=== PATIENT | male | born 1950 | race Hispanic/Latino ===

== ENCOUNTER 2018-01-19 17:52 | Emergency (ER) | payer MEDICARE, MEDICAID ==
[~2018-01-19 17:52] MED LIST: ISOVUE-370 76%-LOCM 1 ML ONE
[2018-01-19] MEDS ORDERED: Lidocaine 1% (PF) 30 ML VIAL ONE (17:56)
[2018-01-19] MEDS ORDERED: Lidocaine 1% w/Epinephrine 1:100K 20 ML VIAL ONE (17:56)
[2018-01-19] MEDS ORDERED: Adacel (T-DAP) 0.5 ML VIAL ONE (18:07)
[2018-01-19] MEDS ORDERED: Clindamycin/D5W 600 mg/50 ml Premix Bag ONE (18:07)
[2018-01-19 18:18] LABS: #Eosinphils 0.3 thou/uL (0.0-0.7); #Lymphocytes 1.8 thou/uL (1.20-3.40); #Monocytes 0.5 thou/uL (0.11-0.59); #Neutrophils 4.2 thou/uL (1.40-6.50); %Basophils 0.6 % (0.0-1.0); %Eosinophils 5.1 % (0.0-10.0); %Lymphocytes 26.8 % (21.0-51.0); %Monocytes 7.1 % (0.0-10.0); %Neutrophils 60.5 % (42.0-75.0); Hemoglobin 11.4 g/dL (14.0-18.0); Mean Corpuscular HGB CONC 32.8 g/dL (32.0-36.0); Mean Corpuscular Hemoglobin 28.4 pg (27.0-31.0); Mean Corpuscular Volume 86.6 fl (80.0-94.0); Mean Platelet Volume 8.6 fL (7.4-10.4); Platelet Count 247 thou/uL (130-400); RBC Distribution Width 13.9 % (11.5-14.5); Red Blood Cell (RBC) Count 4.03 mill/uL (4.70-6.10); White Blood Cell (WBC) Count 6.9 thou/uL (4.8-10.8)
[2018-01-19] MEDS ORDERED: Acetaminophen 500 MG TAB ONE (18:29)
[2018-01-19 18:39] LABS: ALT (SGPT) 9 U/L (8-55); AST (SGOT) 15 U/L (5-34); Albumin 3.6 g/dL (3.4-4.8); Alkaline Phosphatase 133 U/L (40-150); Anion Gap 17 mmol/L (10-20); BUN (Urea Nitrogen) 33 mg/dL (8.4-25.7); Bilirubin, Total 0.3 mg/dL (0.2-1.2); Calc. Creatinine Clearance 0 mL/min (70-130); Calcium 8.5 mg/dL (7.8-10.44); Carbon Dioxide 25 mmol/L (23-31); Chloride 97 mmol/L (98-107); Estimated GFR-MDRD 11; Globulin 3.2 g/dL (2.4-3.5); Glucose 454 mg/dL (80-115); Protein, Total 6.8 g/dL (5.8-8.1); Sodium 135 mmol/L (136-145)
[2018-01-19 18:44] LABS: INR-International Normal Ratio 1.2; PTT 35.4 SEC (22.9-36.1); Prothrombin Time 15.4 SEC (12.0-14.7)
[2018-01-19] MEDS ORDERED: Bacitracin Zinc 1 Packet ONE (19:43)
[2018-01-19] MEDS ORDERED: traMADol HCl 50 MG TAB ONE (19:43)
--- NOTE | 2018-01-19 19:48 | CT ---
CT ANGIOGRAM LEFT UPPER EXTREMITY: Date: 01/19/18 HISTORY: Dog bite to right wrist 40 minutes prior to arrival. Patient reports right arm and hand pain. TECHNIQUE: Contiguous axial CT images are obtained through the right distal upper extremity from the level of th e distal forearm to the hand after the administration of intravenous contrast. 3D reconstruction imag es are provided. FINDINGS: There is subcutaneous soft tissue swelling with subcutaneous emphysema seen at the lateral aspect of the distal forearm at the level of the wrist suggesting laceration with associated subcutaneous edema . There is no extravasation of contrast to suggest active bleeding. The imaged portion of the distal brachial artery is patent. There are atherosclerotic vascular calcif ications and tortuosity of the ulnar artery, but the ulnar artery does appear patent to the level of the wrist. The most proximal radial artery is patent, but there is occlusion of the right radial yennifer ry at the level of the mid forearm. There are dense atherosclerotic vascular calcifications also seen in this region and distally within the right radial artery. The digital arteries do appear to demons trate flow as well. At least a portion of the palmar arch does appear patent. The vessels within the hand are small in caliber. There is no evidence of a fracture involving the forearm or wrist. IMPRESSION: 1. Evidence of laceration with subcutaneous edema involving the lateral aspect of the distal left fo rearm and wrist adjacent to the right radial artery. Right radial artery occludes at the level of the mid forearm. 2. The left ulnar artery is tortuous, but patent, and there is flow demonstrated in the digital yennifer anderson. The vessels in the hand are small in caliber, but the deep and superficial palmar arches appear patent. 3. No fracture seen. Findings discussed with Dr. Ngo in the emergency department on 01/19/18 at 1929 hours. CODE CR. POS: [facility]
[2018-01-19] MEDS ORDERED: Lidocaine Viscous Sol 2% 15 ml UD Cup ONE (21:35)
[2018-01-19] MEDS ORDERED: Mag-Al 1200 mg/1200 mg/30 ML UDCUP ONE (21:35)
--- NOTE | 2018-01-19 22:36 | CT ---
NONCONTRAST CT ABDOMEN AND PELVIS: Date: 01/19/18 HISTORY: Abdominal pain in epigastric region radiating to back. COMPARISON: 04/05/17. FINDINGS: Calcified granuloma is again seen at the left lung base. Lung bases are otherwise clear. Vascular calcifications are seen in the coronary arteries, as well as involving the abdominal aorta a nd iliac arteries. Vascular stent is present in the right common iliac artery extending into the righ t external iliac artery. Peritoneal dialysis catheter is seen entering via the right lower quadrant and terminating in the lef t aspect of the pelvis. There is minimal residual contrast in the renal collecting systems and contrast also seen in the urin tri bladder related to contrasted study performed earlier today. The liver, spleen, pancreas, bilateral adrenal glands, and kidneys demonstrate a grossly normal nonen hanced CT appearance. The appendix is visualized and normal in caliber. The raymundo of the urinary bladder do appear mildly thickened, but this may be related to incomplete di stention. Degenerative changes are seen in the spine with bilateral pars defects at L5 and slight Grade I anter olisthesis of L5 on S1. The area of skin thickening and inflammatory changes in the left anterolateral abdominal wall have im proved. There are degenerative changes seen in the lumbar spine with suggestion of fatty phylum terminale. IMPRESSION: 1. No acute findings are seen on this nonenhanced CT scan examination. There is no hydronephrosis or hydroureter. A ureteral calculus would be difficult to entirely exclude due to contrast in the renal collecting systems from prior contrasted exam. 2. Small to moderate amount of retained fecal material seen in the colon. 3. No CT evidence of appendicitis. 4. Spondylolisthesis lumbosacral junction. POS: [facility]
== END 2018-01-20 00:39 | disposition home or self-care (01) ==
LOC: ERS 17:52
DX: S61.551A Open bite of right wrist, initial encounter (principal); S51.851A Open bite of right forearm, initial encounter; S61.051A Open bite of right thumb without damage to nail, initial encounter; S61.052A Open bite of left thumb without damage to nail, initial encounter; E11.9 Type 2 diabetes mellitus without complications; I10 Essential (primary) hypertension; Z79.4 Long term (current) use of insulin; W54.0XXA Bitten by dog, initial encounter
CPT/HCPCS: 12002; 74176; 80053; 85025; 85610; 85730; 86850; 86900; 86901; 90471; 90715; 96365; J2001; J3490

== ENCOUNTER 2018-02-03 10:06 | Emergency (ER) | payer MEDICARE, MEDICAID ==
[2018-02-03] MEDS ORDERED: Bacitracin Zinc 1 Packet ONE (11:02)
== END 2018-02-03 11:04 | disposition home or self-care (01) ==
LOC: ERS 10:06
DX: S61.012D Laceration without foreign body of left thumb without damage to nail, subsequent encounter (principal); S61.011D Laceration without foreign body of right thumb without damage to nail, subsequent encounter; E11.9 Type 2 diabetes mellitus without complications; I10 Essential (primary) hypertension; Z79.4 Long term (current) use of insulin

== ENCOUNTER 2018-02-20 15:38 | Outpatient (CLI) | payer MEDICARE, MEDICAID | END 2018-02-20 15:39 | disposition home or self-care (01) | LOC: BICRAD 15:38 | PROVIDERS: ATTEND Internal Medicine Nephrology | DX: R07.81 Pleurodynia (principal); J90 Pleural effusion, not elsewhere classified | CPT/HCPCS: 71046 ==

== ENCOUNTER 2018-03-25 16:54 | Emergency (ER) | payer MEDICARE, MEDICAID ==
[2018-03-25 18:06] LABS: #Basophils 0.1 thou/uL (0.0-0.2); #Eosinphils 0.3 thou/uL (0.0-0.7); #Lymphocytes 1.9 thou/uL (1.20-3.40); #Monocytes 0.7 thou/uL (0.11-0.59); #Neutrophils 3.9 thou/uL (1.40-6.50); %Basophils 1.4 % (0.0-1.0); %Eosinophils 4.7 % (0.0-10.0); %Lymphocytes 27.1 % (21.0-51.0); %Monocytes 10.2 % (0.0-10.0); %Neutrophils 56.6 % (42.0-75.0); Hemoglobin 14.4 g/dL (14.0-18.0); Mean Corpuscular HGB CONC 32.5 g/dL (32.0-36.0); Mean Corpuscular Hemoglobin 26.9 pg (27.0-31.0); Mean Corpuscular Volume 82.8 fl (80.0-94.0); Mean Platelet Volume 9.8 fL (7.4-10.4); Platelet Count 135 thou/uL (130-400); RBC Distribution Width 14.6 % (11.5-14.5); Red Blood Cell (RBC) Count 5.34 mill/uL (4.70-6.10); White Blood Cell (WBC) Count 6.9 thou/uL (4.8-10.8)
[2018-03-25 18:28] LABS: ALT (SGPT) 10 U/L (8-55); AST (SGOT) 16 U/L (5-34); Albumin 3.7 g/dL (3.4-4.8); Alkaline Phosphatase 129 U/L (40-150); Anion Gap 9 mmol/L (10-20); BUN (Urea Nitrogen) 26 mg/dL (8.4-25.7); Bilirubin, Total 0.3 mg/dL (0.2-1.2); Calc. Creatinine Clearance 0 mL/min (70-130); Calcium 8.5 mg/dL (7.8-10.44); Carbon Dioxide 31 mmol/L (23-31); Chloride 101 mmol/L (98-107); Estimated GFR-MDRD 14; Glucose 93 mg/dL (80-115); Lipase 40 U/L (8-78); Potassium 3.2 mmol/L (3.5-5.1); Protein, Total 6.7 g/dL (5.8-8.1); Sodium 138 mmol/L (136-145)
--- NOTE | 2018-03-25 20:10 | CT ---
CT OF THE ABDOMEN AND PELVIS WITHOUT CONTRAST 03/25/18 COMPARISON: 01/19/18 HISTORY: Abdominal pain. The patient has a hemodialysis catheter in the abdomen. TECHNIQUE: Multiple contiguous axial images were obtained in a CT of the abdomen and pelvis without contrast. Co jadiel reformats were performed. FINDINGS: The kidneys are small and atrophic. The liver, gallbladder, adrenal glands, spleen, and pancreas are unremarkable, although evaluation is limited without IV contrast. The patient has a peritoneal dialysis catheter with its tip in the left abdomen. No free air, free fl uid, or stranding changes are seen in the abdomen or pelvis. The visualized large and small bowel are unremarkable. The appendix is normal. No abdominal or pelvic lymphadenopathy are seen. Degenerative changes are seen in the spine. The visu alized inferior thorax is unremarkable. IMPRESSION: No evidence of acute intra-abdominal/pelvic abnormality. POS: [facility]
== END 2018-03-25 18:32 | disposition home or self-care (01) ==
LOC: ERS 16:54
DX: R10.9 Unspecified abdominal pain (principal); I12.0 Hypertensive chronic kidney disease with stage 5 chronic kidney disease or end stage renal disease; E11.22 Type 2 diabetes mellitus with diabetic chronic kidney disease; N18.6 End stage renal disease; Z99.2 Dependence on renal dialysis; Z79.4 Long term (current) use of insulin; W01.0XXA Fall on same level from slipping, tripping and stumbling without subsequent striking against object, initial encounter
CPT/HCPCS: 36415; 74176; 80053; 83690; 85025; 93005

== ENCOUNTER 2018-05-23 09:05 | Outpatient (CLI) | payer MEDICARE, MEDICAID ==
--- NOTE | 2018-05-23 11:23 | CT ---
PRE AND POST CONTRAST HEAD CT: HISTORY: Chronic dizziness. The patient is a dialysis patient. COMPARISON: None. TECHNIQUE: Pre and post contrast head CT is performed. FINDINGS: No parenchymal hemorrhage. No extraaxial hematoma. No midline shift. The basilar cisterns are pat ent. Age appropriate atrophy. Cortical carr white matter differentiation is preserved. Ventricles and sulci are patent and symmetric. Note is made of a cavum septum pellucidum and cavum vergae. The calvarium is intact. Adequate aeration of the sinuses and mastoid air cells. Cavernous carotid atherosclerosis is noted. Post contrast images do not demonstrate any abnormal enhancement/pathologic enhancement of the brain parenchyma. IMPRESSION: Unremarkable pre and post contrast brain CT. POS: [facility]
== END 2018-05-23 09:06 | disposition home or self-care (01) ==
LOC: CT 09:05
PROVIDERS: ATTEND Internal Medicine Nephrology
DX: R42 Dizziness and giddiness (principal)
CPT/HCPCS: 70470

== ENCOUNTER 2019-01-29 20:35 | Emergency (ER) | payer MEDICARE, MEDICAID ==
[2019-01-29 21:02] LABS: #Basophils 0.1 thou/uL (0.0-0.2); #Eosinphils 0.4 thou/uL (0.0-0.7); #Lymphocytes 1.3 thou/uL (1.20-3.40); #Neutrophils 7.6 thou/uL (1.40-6.50); %Basophils 0.6 % (0.0-1.0); %Eosinophils 3.4 % (0.0-10.0); %Monocytes 9.5 % (0.0-10.0); %Neutrophils 73.4 % (42.0-75.0); Hemoglobin 13.1 g/dL (14.0-18.0); Mean Corpuscular HGB CONC 33.2 g/dL (32.0-36.0); Mean Corpuscular Hemoglobin 31.7 pg (27.0-31.0); Mean Corpuscular Volume 95.7 fL (78.0-98.0); Mean Platelet Volume 9.2 fL (7.4-10.4); Platelet Count 163 thou/uL (130-400); RBC Distribution Width 11.9 % (11.5-14.5); Red Blood Cell (RBC) Count 4.12 mill/uL (4.70-6.10); White Blood Cell (WBC) Count 10.3 thou/uL (4.8-10.8)
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
[2019-01-29 21:21] LABS: ALT (SGPT) 12 U/L (8-55); AST (SGOT) 17 U/L (5-34); Albumin 4.1 g/dL (3.4-4.8); Alkaline Phosphatase 152 U/L (40-150); Anion Gap 16 mmol/L (10-20); BUN (Urea Nitrogen) 26 mg/dL (8.4-25.7); Bilirubin, Total 0.4 mg/dL (0.2-1.2); Calc. Creatinine Clearance 0 mL/min (70-130); Calcium 8.9 mg/dL (7.8-10.44); Carbon Dioxide 27 mmol/L (23-31); Chloride 97 mmol/L (98-107); Estimated GFR-MDRD 9; Globulin 3.2 g/dL (2.4-3.5); Glucose 287 mg/dL (80-115); Potassium 4.4 mmol/L (3.5-5.1); Protein, Total 7.3 g/dL (5.8-8.1); Sodium 136 mmol/L (136-145)
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
[2019-01-29] MEDS ORDERED: Acetaminophen 500 MG TAB ONE (22:13)
== END 2019-01-29 22:12 | disposition home or self-care (01) ==
LOC: ERS 20:35
DX: S63.502A Unspecified sprain of left wrist, initial encounter (principal); S63.501A Unspecified sprain of right wrist, initial encounter; E11.9 Type 2 diabetes mellitus without complications; I10 Essential (primary) hypertension; Z79.4 Long term (current) use of insulin; V89.2XXA Person injured in unspecified motor-vehicle accident, traffic, initial encounter
CPT/HCPCS: 70450; 71260; 72125; 74177; 80053; 85025; G0390; Q9966

== ENCOUNTER 2019-08-06 12:48 | Inpatient (IN) | payer MEDICARE, MEDICAID ==
[2019-08-06] MEDS ORDERED: Nitroglycerin 2% Ointment 1 INCH/1 GM Packet ONE (13:27)
[2019-08-06 13:47] LABS: #Eosinphils 0.2 thou/uL (0.0-0.7); #Lymphocytes 1.1 thou/uL (1.20-3.40); #Monocytes 0.7 thou/uL (0.11-0.59); #Neutrophils 7.1 thou/uL (1.40-6.50); %Basophils 0.4 % (0.0-1.0); %Eosinophils 1.7 % (0.0-10.0); %Lymphocytes 11.7 % (21.0-51.0); %Monocytes 7.6 % (0.0-10.0); %Neutrophils 78.6 % (42.0-75.0); Hemoglobin 11.4 g/dL (14.0-18.0); Mean Corpuscular HGB CONC 34.8 g/dL (32.0-36.0); Mean Corpuscular Hemoglobin 32.6 pg (27.0-31.0); Mean Corpuscular Volume 93.7 fL (78.0-98.0); Mean Platelet Volume 9.6 fL (7.4-10.4); Platelet Count 183 thou/uL (130-400); RBC Distribution Width 11.4 % (11.5-14.5); Red Blood Cell (RBC) Count 3.49 mill/uL (4.70-6.10); White Blood Cell (WBC) Count 9.1 thou/uL (4.8-10.8)
--- NOTE | 2019-08-06 13:48 | RAD ---
EXAM: Chest one view: HISTORY: Chest pain which began 30 minutes after dialysis COMPARISON: 06/09/2017 FINDINGS: Postop midline sternotomy. Heart size: Borderline size. Lungs: Clear of acute process. No evidence for pneumonia, pleural effusion, acute edema, or pneumothorax, or other significant acute process. IMPRESSION: No significant acute intrathoracic disease.
[2019-08-06 14:11] LABS: ALT (SGPT) 9 U/L (8-55); AST (SGOT) 12 U/L (5-34); Albumin 4.1 g/dL (3.4-4.8); Alkaline Phosphatase 141 U/L (40-110); Anion Gap 20 mmol/L (10-20); BUN (Urea Nitrogen) 72 mg/dL (8.4-25.7); Bilirubin, Total 0.4 mg/dL (0.2-1.2); CK (CPK) 156 U/L (30-200); Calc. Creatinine Clearance 0 mL/min (70-130); Calcium 8.5 mg/dL (7.8-10.44); Carbon Dioxide 21 mmol/L (23-31); Chloride 98 mmol/L (98-107); Estimated GFR-MDRD 5; Glucose 335 mg/dL (80-115); Potassium 4.4 mmol/L (3.5-5.1); Protein, Total 7.1 g/dL (5.8-8.1); Sodium 135 mmol/L (136-145)
[2019-08-06] MEDS ORDERED: Enoxaparin Sodium 100 MG/ML SYRINGE ONE (17:09)
[2019-08-06 17:12] LABS: CKMB 6.3 ng/mL (0-6.6)
[2019-08-06] MEDS ORDERED: Ondansetron ODT 4 MG TAB PO PRN (17:13)
[2019-08-06] MEDS ORDERED: Acetaminophen 325 MG TAB PO PRN (17:13)
[2019-08-06] MEDS ORDERED: Nitroglycerin 0.4 MG TAB (25 Tab Bottle) PO PRN (17:13)
[2019-08-06] MEDS ORDERED: Acetaminophen 650 MG Suppository PR PRN (17:13)
[2019-08-06] MEDS ORDERED: Ondansetron PF 4 MG/2 ML Vial IVP PRN (17:13)
[2019-08-06] MEDS ORDERED: Guaifenesin DM 100-10/5 ML UDCUP PO PRN (17:13)
[2019-08-06 18:03] LABS: Troponin I 1.811 ng/mL (< 0.028)
[2019-08-06] MEDS ORDERED: hydrALAZINE 20 MG/ML VIAL SLOW IVP PRN ×2 (19:51→22:51)
[2019-08-06] MEDS: Carvedilol 6.25 MG TAB PO SCH (20:33)
[2019-08-06] MEDS: hydrALAZINE 25 MG TAB PO SCH (20:33)
[2019-08-06 20:53] LABS: Troponin I 2.682 ng/mL (< 0.028)
[2019-08-06] MEDS ORDERED: Heparin 5,000 UNITS/ML VIAL SC SCH (21:00)
[2019-08-06] MEDS: Heparin 10,000 UNITS/ 10 ML VIAL SLOW IVP SCH (21:22)
[2019-08-06] MEDS: Heparin 25,000 units/D5W 500 ML IV SCH (21:23)
--- NOTE | 2019-08-06 22:37 | PDOC.FPRHP ---
- History of Present Illness Chief Complaint: Chest Pain History of Present Illness: Mr. Richmond is a 68 y/o male w/ a PMH significant for a CABG (2014), HTN, HLD, DM2 (dialysis-dependent) who presents to the ED w/ a 2-3 day history of chest pain. Mr. Richmond is primarily [place]uvian-speaking, so an cutter and presser had to be used for the majority of the evaluation, limiting the effectiveness of the encounter. He states that he has had intermittent chest pain since his CABG in 2014, but it has been getting worse over the past 2-3 days. On 08/06/19 , he stated that he began to have severe substernal chest pain that radiated to his back while he was checking in for dialysis. The pain was associated with blurry vision, and was rated as a 10 in severity. Subsequently, his BP was checked and was ready with a systolic pressure >230. He was administered nitro paste and promptly transferred to the ED. ED Course: While in the ED, Mr. Richmond received an additional dose of nitro paste as well as an EKG, which was read to have a septal infarct of indeterminate age and a stable RBBB. His BP remained elevated, with a systolic pressure in the 180s and 190s. - Allergies/Adverse Reactions Allergies Allergy/AdvReac Type Severity Reaction Status Date / Time hydrocodone Allergy Verified 11/19/14 13:27 Penicillins Allergy Verified 11/19/14 13:27 - Home Medications Medication Instructions Recorded Confirmed Type Aspirin 325 mg PO DAILY 03/27/13 08/06/19 History Levothyroxine Sodium [Synthroid] 88 mcg PO DAILY 03/27/13 08/06/19 History Insulin Aspart [NovoLOG FlexPen] 5 unit SC TID- 11/19/14 08/06/19 History Insulin Detemir 100 UNITS/ML 45 units SC BID 11/19/14 08/06/19 History [Levemir] Carvedilol [Coreg] 12.5 mg PO BID 12/20/16 08/06/19 History Clopidogrel Bisulfate [Plavix] 75 mg PO DAILY 12/20/16 08/06/19 History glipiZIDE [glipiZIDE ER] 10 mg PO BID- 12/20/16 08/06/19 History hydrALAZINE HCl 50 mg PO TID 12/20/16 08/06/19 History Amlodipine Besylate [amLODIPine 10 mg PO DAILY #30 tablet 04/05/17 08/06/19 Rx Besylate] Atorvastatin Calcium [Lipitor] 40 mg PO HS #30 tab 08/09/19 Rx - History PMHx: HTN, HLD, CKD, DM2 PSHx: CABG (2014) FHx: HTN, DM2 Social: Denies x3 - Review of Systems General: reports: night sweats, fatigue. denies: fever/chills, weight/appetite/ sleep changes Eyes: reports: vision changes. denies: eye pain ENT: reports: nasal congestion, rhinorrhea Respiratory: reports: congestion, shortness of breath. denies: cough Cardiovascular: reports: chest pain, palpitation. denies: edema Gastrointestinal: denies: nausea, vomiting, diarrhea, GI bleeding Genitourinary: denies: dysuria, polyuria Skin: denies: rashes Musculoskeletal: reports: pain, stiffness Neurological: denies: numbness, syncope, weakness - Vital signs BP: [171/80] HR: [68] RR: [22] Tmax: [98.7] Pox: [98]% on [Room] Wt: [] - Physical Exam Constitutional: NAD, awake, alert and oriented, well developed HEENT: normocephalic and atraumatic, PERRLA, EOMI, conjunctiva clear, no scleral icterus, grossly normal vision, grossly normal hearing, normal nasal mucosa, MMM, oropharynx clear Neck: supple, FROM, trachea midline, no LAD Chest: no-tender to palpation, other (Sternotomy scar) Heart: RRR, normal S1/S2, no murmurs/rubs/gallops, pulses present, no edema Lungs: CTAB, no respiratory distress, no rales/rhonchi, no wheezing, no retractions Abdomen: soft, non-tender, bowel sounds present Musculoskeletal: normal structure, ROM grossly normal Neurological: no focal deficit, normal sensation Skin: no rash/lesions Heme/Lymphatic: no unusual bruising or bleeding, no purpura, no petechia, no LAD Psychiatric: normal mood and affect, intact recent and remote memory FMR H&P: Results - Labs Result Diagrams: 08/07/19 03:48 08/07/19 03:48 Lab results: WBC 9.1 thou/uL (4.8-10.8) 08/06/19 13:31 Hgb 11.4 g/dL (14.0-18.0) L 08/06/19 13:31 Hct 32.7 % (42.0-52.0) L 08/06/19 13:31 MCV 93.7 fL (78.0-98.0) 08/06/19 13:31 Plt Count 183 thou/uL (130-400) 08/06/19 13:31 Neutrophils % 78.6 % (42.0-75.0) H 08/06/19 13:31 Sodium 135 mmol/L (136-145) L 08/06/19 13:31 Potassium 4.4 mmol/L (3.5-5.1) 08/06/19 13:31 Chloride 98 mmol/L (98-107) 08/06/19 13:31 Carbon Dioxide 21 mmol/L (23-31) L 08/06/19 13:31 BUN 72 mg/dL (8.4-25.7) H 08/06/19 13:31 Creatinine 10.72 mg/dL (0.7-1.3) H 08/06/19 13:31 Glucose 335 mg/dL (80-115) H 08/06/19 13:31 Calcium 8.5 mg/dL (7.8-10.44) 08/06/19 13:31 Total Bilirubin 0.4 mg/dL (0.2-1.2) 08/06/19 13:31 AST 12 U/L (5-34) 08/06/19 13:31 ALT 9 U/L (8-55) 08/06/19 13:31 Alkaline Phosphatase 141 U/L (40-110) H 08/06/19 13:31 Creatine Kinase 156 U/L (30-200) 08/06/19 13:31 CK-MB (CK-2) 6.3 ng/mL (0-6.6) 08/06/19 13:31 Serum Total Protein 7.1 g/dL (5.8-8.1) 08/06/19 13:31 Albumin 4.1 g/dL (3.4-4.8) 08/06/19 13:31 FMR H&P: A/P - Problem List (1) CKD (chronic kidney disease) stage 4, GFR 15-29 ml/min Status: Acute Code(s): N18.4 - CHRONIC KIDNEY DISEASE, STAGE 4 (SEVERE) (2) Chest pain Status: Acute Code(s): R07.9 - CHEST PAIN, UNSPECIFIED (3) Coronary artery disease Status: Acute Code(s): I25.10 - ATHSCL HEART DISEASE OF [place] CORONARY ARTERY W/O ANG PCTRS (4) Diabetes Status: Chronic Code(s): E11.9 - TYPE 2 DIABETES MELLITUS WITHOUT COMPLICATIONS Qualifiers: Diabetes mellitus type: type 2 (5) HTN (hypertension) Status: Chronic Code(s): I10 - ESSENTIAL (PRIMARY) HYPERTENSION - Plan 1. Atypical Chest Pain, ACS r/o -Patient has multiple comorbidities for adverse cardiovascular outcomes -Physical exam unremarkable -Trops: 0.503, 1.811, 2.682 -EKG: At baseline w/o ST changes -HEART Score: 8 (High) -Nitrates, Aspirin, B-Anh and Statin currently on-board -Heparin Protocol initiated w/ Pharmacy to dose -Dr. Harding (Cardiology) consulted- will follow recs. 2. HTN -Poorly controlled, likely chronic -Currently controlled in 160s - 180s w/ Clonidine, Amlodipine and Hydralazine, per Cardiology 3. ESRD on Dialysis -Will need to consult Nephrology to get continued on dialysis regimen. Did not get dialysis yesterday as was sent over from there due to elevated BP and chest pain. 4. DM2 -Poorly controlled, likely chronic. Restarted home insulin dose. May want to hold Novolog insulin as he is NPO. -Hyperglycemia Protocol initiated -Mild Sliding Scale Insulin -Accucheck ACHS 5. HLD -Conitinue home medication regimen Code Status: Full Code Diet: NPO After Midnight Activity: Ad Rita DVT PPx: SCDs and Heparin Dispo: Patient currently stable on Telemetry Floor. Multiple CV risk factors and recent elevated BP w/ CP is concerning. Cardiology consulted on 08/06 w/ Nephrology consult to follow. Will follow recs. FMR H&P: Upper Level - Pertinent history I was present with the chemical engineering intern during the HPI. I scribed the above document. I made edits as needed. - Pertinent findings Pt having chest pain at this time. No tenderness to palpation along chest. Pt resting in bed. Lungs CTA-B. Cardio- RRR, no murmurs or gallops. - Plan Date/Time: 08/06/19 683 I,Dre Cain, PGY-3, have evaluated this patient and agree with findings/ plan as outlined by chemical engineering intern resident. Pertinent changes/additions are listed here. I made changes to plan as needed. At this time pt has positive trops w/ continued chest pain that continue to rise. We have consulted Dr. Bae with Cardiology. Will follow recs and await plan for the morning. Will keep NPO pending procedure or stress. Pt BP poorly controlled. Restarted home meds. Also placed on Hydralazine IV for BP over 180. Per cards we want to try and keep BP down. Pt ESRD on dialysis. Will consult nepo in the AM to get dialysis recs. Addendum - Attending - Attending Attestation Date/Time: 08/11/19 [id number] I personally evaluated the patient and discussed the management with Dr. Cain on night of admission. I agree with the History, Examination, Assessment and Plan documented above with any addition or exceptions noted below.
[2019-08-06] MEDS ORDERED: Amlodipine 5 MG TAB PO SCH (23:15)
[2019-08-07] MEDS: cloNIDine 0.1 MG TAB PO PRN (01:30)
[2019-08-07] MEDS ORDERED: hydrALAZINE 20 MG/ML VIAL SLOW IVP PRN ×3 (03:04→07:15)
[2019-08-07] MEDS ORDERED: HumaLOG 300 UNITS/3 ML VIAL SC PRN (03:11)
[2019-08-07] MEDS ORDERED: Dextrose 50% Abboject 50 ML SYRINGE SLOW IVP PRN (03:11)
[2019-08-07] MEDS ORDERED: Dextrose 5% in Water 1,000 ML IV PRN (03:11)
[2019-08-07] MEDS ORDERED: hydrALAZINE 20 MG/ML VIAL ONE (03:31)
[2019-08-07 04:45] LABS: #Basophils 0.1 thou/uL (0.0-0.2); #Eosinphils 0.4 thou/uL (0.0-0.7); #Monocytes 0.8 thou/uL (0.11-0.59); #Neutrophils 7.6 thou/uL (1.40-6.50); %Basophils 0.6 % (0.0-1.0); %Eosinophils 3.7 % (0.0-10.0); %Lymphocytes 18.1 % (21.0-51.0); %Monocytes 7.7 % (0.0-10.0); %Neutrophils 69.8 % (42.0-75.0); Hemoglobin 11.7 g/dL (14.0-18.0); Mean Corpuscular HGB CONC 34.1 g/dL (32.0-36.0); Mean Corpuscular Hemoglobin 32.3 pg (27.0-31.0); Mean Corpuscular Volume 94.7 fL (78.0-98.0); Mean Platelet Volume 9.6 fL (7.4-10.4); PTT 120.1 SEC (22.9-36.1); Platelet Count 181 thou/uL (130-400); RBC Distribution Width 11.5 % (11.5-14.5); Red Blood Cell (RBC) Count 3.62 mill/uL (4.70-6.10); White Blood Cell (WBC) Count 10.9 thou/uL (4.8-10.8)
[2019-08-07 05:01] LABS: ALT (SGPT) 9 U/L (8-55); AST (SGOT) 15 U/L (5-34); Albumin 3.8 g/dL (3.4-4.8); Alkaline Phosphatase 100 U/L (40-110); Anion Gap 22 mmol/L (10-20); BUN (Urea Nitrogen) 76 mg/dL (8.4-25.7); Bilirubin, Total 0.5 mg/dL (0.2-1.2); Calc. Creatinine Clearance 8 mL/min (70-130); Calcium 8.4 mg/dL (7.8-10.44); Carbon Dioxide 19 mmol/L (23-31); Cardiac Risk 4.8 (Less than 4.5); Chloride 100 mmol/L (98-107); Cholesterol 140 mg/dl (< 200 Desired); Estimated GFR-MDRD 5; Globulin 2.8 g/dL (2.4-3.5); Glucose 95 mg/dL (80-115); HDL Cholesterol 29 mg/dL (>60 Neg Risk); LDL Cholesterol, Calculated 98 mg/dL; Potassium 3.8 mmol/L (3.5-5.1); Protein, Total 6.6 g/dL (5.8-8.1); Sodium 137 mmol/L (136-145); Triglycerides 65 mg/dL (Less than 150)
[2019-08-07 05:03] LABS: Critical Call Chem Troponin I RESULT DECREASING; Troponin I 2.413 ng/mL (< 0.028)
[2019-08-07] MEDS: Levothyroxine Sodium 88 MCG TAB PO SCH (05:46)
[2019-08-07] MEDS: Amlodipine 10 MG TAB PO SCH (08:17)
[2019-08-07] MEDS: Aspirin 325 mg Enteric Coated Tablet PO SCH (08:17)
[2019-08-07] MEDS: hydrALAZINE 25 MG TAB PO SCH ×3 (08:17→21:02)
[2019-08-07] MEDS: Carvedilol 6.25 MG TAB PO SCH ×2 (08:18→21:02)
[2019-08-07] MEDS: HumaLOG 300 UNITS/3 ML VIAL SC SCH ×3 (08:24→16:47)
--- NOTE | 2019-08-07 08:53 | PDOC.FM ---
- Subjective Subjective: Pt endorsed a frontal SILVER this morning. Otherwise chest pain has resolved. He sees Dr. Cornell in the outpt setting for dialysis where he was unable to receive dialysis yesterday due to chest pain. - Objective Vital Signs & Weight: Vital Signs (12 hours) Temp Pulse Resp BP BP Pulse Ox 08/07/19 08:41 98.2 F 67 16 126/61 94 L 08/07/19 08:18 177/84 H 08/07/19 08:17 69 177/84 H 08/07/19 04:45 70 152/69 H 08/07/19 04:06 68 08/07/19 03:40 78 180/87 H 08/07/19 02:30 68 167/74 H 08/07/19 01:30 71 202/90 H 202/90 H 08/07/19 00:27 68 171/80 H 08/06/19 23:14 75 192/84 H 08/06/19 22:30 80 176/74 H 08/06/19 22:00 72 167/74 H 08/06/19 21:28 72 221/92 H Weight Weight 90.991 kg Result Diagrams: 08/07/19 03:48 08/07/19 03:48 Phys Exam - Physical Examination Constitutional: NAD HEENT: PERRLA, moist MMs Respiratory: no wheezing, no rales, no rhonchi, clear to auscultation bilateral Cardiovascular: RRR, no significant murmur Gastrointestinal: soft, non-tender, no distention Musculoskeletal: no edema, pulses present Psychiatric: normal affect, A&O x 3 Dx/Plan (1) ESRD (end stage renal disease) on dialysis Code(s): N18.6 - END STAGE RENAL DISEASE; Z99.2 - DEPENDENCE ON RENAL DIALYSIS Status: Acute (2) Chest pain Code(s): R07.9 - CHEST PAIN, UNSPECIFIED Status: Acute (3) Coronary artery disease Code(s): I25.10 - ATHSCL HEART DISEASE OF [place] CORONARY ARTERY W/O ANG PCTRS Status: Acute (4) Diabetes Code(s): E11.9 - TYPE 2 DIABETES MELLITUS WITHOUT COMPLICATIONS Status: Acute (5) HTN (hypertension) Code(s): I10 - ESSENTIAL (PRIMARY) HYPERTENSION Status: Acute - Plan Plan: 1. Atypical Chest Pain, ACS r/o -Patient has multiple comorbidities for adverse cardiovascular outcomes -Physical exam unremarkable -Trops: 0.503, 1.811, 2.682, 2.4 -EKG: At baseline w/o ST changes -HEART Score: 8 (High) -Nitrates, Aspirin, B-Anh and Statin currently on-board -Heparin Protocol initiated w/ Pharmacy to dose -Dr. Harding (Cardiology) consulted- will follow recs. 2. HTN -Poorly controlled, likely chronic -Currently controlled in 160s - 180s w/ Clonidine, Coreg and Hydralazine, per Cardiology; Hydralazine IV prn - likely needs dialysis 3. ESRD on Dialysis - Dr. Cornell consulted; sees pt in outpt setting. Will see pt today and dialyze. 4. DM2 -Poorly controlled, likely chronic. Restarted home insulin dose. -Hyperglycemia Protocol initiated -Mild Sliding Scale Insulin -Accucheck ACHS 5. HLD -Continue home medication regimen Code Status: Full Code Diet: NPO After Midnight Activity: Ad Rita DVT PPx: SCDs and Heparin Dispo: Patient currently stable on Telemetry Floor. Multiple CV risk factors and recent elevated BP w/ CP is concerning. Cardiology consulted on 08/06 w/ Nephrology 08/07. Will follow recs.
[2019-08-07] MEDS ORDERED: FLU VACC TS2019-20(65YR UP)/PF 180 MCG/0.5 ML SYRINGE IM ONE (09:00)
[2019-08-07] MEDS ORDERED: Prevnar 13-Val Conj/PF 0.5 ML SYRINGE IM ONE (09:00)
[2019-08-07] MEDS ORDERED: Non-Formulary Item 1 EACH (Insulin Detemir 100 Units/Ml [Levemir] 45 UNITS) SC SCH (09:00)
--- NOTE | 2019-08-07 09:58 | PRG ---
DATE OF SERVICE: 08/07/2019 SERVICE: Renal Medicine. SUBJECTIVE: Mr. Richmond is a 68-year-old male with ESRD, currently on maintenance hemodialysis and was admitted with chest pain. While about to start dialysis, he complained of chest pain with radiation to the arms. He was admitted for further management. We are being consulted for his maintenance hemodialysis. Of interest, the patient did not dialyze yesterday and for this reason, he will be dialyzing today. His chest pain is much improved. REVIEW OF SYSTEMS: Positive for chest pain. Positive for mild shortness of breath. More productive cough. No fever or chills. No abdominal pain. No nausea. No vomiting. No diarrhea. No palpitations. No syncopal episode. No dysuria. No urinary frequency. Positive for back pain. PAST MEDICAL HISTORY: Includes the following; 1. ESRD from diabetic nephropathy, type 2 diabetes mellitus, and coronary artery disease. 2. Hypertension. 3. Hyperlipidemia. 4. History of coronary artery disease. 5. Hypothyroidism. PAST SURGICAL HISTORY: Includes status post cardiac cath, status post CABG, status post colonoscopy, status post cuffed dialysis catheter placement, and status post AV fistula placement. MEDICATIONS: 1. Aspirin 325 mg tablet once a day. 2. Levothyroxine 88 mcg daily. 3. Insulin NovoLog FlexPen 5 units subcu t.i.d. 4. Levemir 45 units subcu b.i.d. 5. Coreg 12.5 mg b.i.d. 6. Plavix 75 mg once a day. 7. Glipizide 10 mg ER tab b.i.d. 8. Hydralazine 50 mg p.o. t.i.d. 9. Amlodipine 10 mg once a day. Medications of August 07, 2019, was reviewed. SOCIAL HISTORY: The patient lives in the [facility]. He is , several children. Currently, no smoking. No alcohol intake. Sedentary lifestyle. Status post blood transfusion. ALLERGIES: HYDROCODONE, PENICILLIN. TRAUMA: None. IMMUNIZATIONS: Up-to-date. HOSPITALIZATIONS: Please see past medical history. FAMILY HISTORY: No family history of ESRD. PHYSICAL EXAMINATION: VITAL SIGNS: Blood pressure 126/61, heart rate 67, respiratory rate 16, temperature 98.2, and pulse ox 94%. GENERAL: The patient is noted to be awake, alert, comfortable, not in overt distress. SKIN: Adequate turgor. HEENT: He has a pinkish conjunctivae. Anicteric sclerae. NECK: No neck mass. No carotid bruits. No JVD. CHEST: No deformities. LUNGS: Clear breath sounds. HEART: Normal sinus rhythm. No murmur. No gallops. No rubs. ABDOMEN: Globular, soft, and nontender. No masses. EXTREMITIES: No edema. No deformities. LABORATORY DATA: Laboratories of August 07, 2019; white count 10.9, hemoglobin 11.7. Sodium 137, potassium 3.8, chloride 100, carbon dioxide 19, BUN 76, creatinine 10.94, and albumin 3.8. Troponin I is 2.413. ASSESSMENT AND PLAN: 1. Chest pain - the patient has elevated troponin I. Cardiology is following. Consideration for cardiac cath is being made. 2. End-stage renal disease, stable. We will continue current hemodialysis regimen of 3 times a week. The patient did miss his dialysis and for that reason, he will be scheduled for dialysis later this afternoon. Overall, prognosis remains guarded. Overall, agree with current management. Job ID: [id number]
[2019-08-07 12:16] VITALS: BMI 33.3
[2019-08-07] MEDS: Insulin Glargine 45 UNITS in Pre-Filled Syringe 1 EACH SC SCH ×2 (14:50→21:03)
[2019-08-07] MEDS: Heparin 10,000 UNITS/ 10 ML VIAL SLOW IVP SCH (16:24)
[2019-08-07] MEDS: Atorvastatin Calcium 40 MG TAB PO SCH (21:02)
[2019-08-08] MEDS: Heparin 25,000 units/D5W 500 ML IV SCH (02:10)
--- NOTE | 2019-08-08 05:18 | PDOC.FM ---
- Subjective Subjective: Patient doing well this morning. Denying chest pain, sob, abdominal pain at this time. Did well with dialysis yesterday, though he reported increased pain from the needle stick because he did not have a home medication with him that he puts on his skin before dialysis. Discussed that we are going to try to contact cardiology today to see if and when they may perform a cath. Patient agreeable to current plan of care. - Objective Vital Signs & Weight: Vital Signs (12 hours) Temp Pulse Resp BP BP Pulse Ox 08/08/19 04:00 98.5 F 61 18 136/68 96 08/07/19 21:02 71 142/64 H 08/07/19 21:00 98.8 F 71 18 142/64 H 95 Weight Weight 90.991 kg Result Diagrams: 08/07/19 03:48 08/07/19 03:48 Phys Exam - Physical Examination Constitutional: NAD HEENT: moist MMs, sclera anicteric Neck: supple, full ROM Respiratory: no wheezing, clear to auscultation bilateral Cardiovascular: RRR, no significant murmur Gastrointestinal: soft, non-tender Some distention noted Musculoskeletal: no edema, pulses present Neurological: normal sensation, moves all 4 limbs Lymphatic: no nodes Psychiatric: normal affect, A&O x 3 Skin: no rash, normal turgor Dx/Plan (1) NSTEMI (non-ST elevated myocardial infarction) Code(s): I21.4 - NON-ST ELEVATION (NSTEMI) MYOCARDIAL INFARCTION Status: Acute (2) ESRD (end stage renal disease) on dialysis Code(s): N18.6 - END STAGE RENAL DISEASE; Z99.2 - DEPENDENCE ON RENAL DIALYSIS Status: Chronic (3) Chest pain Code(s): R07.9 - CHEST PAIN, UNSPECIFIED Status: Acute (4) Diabetes Code(s): E11.9 - TYPE 2 DIABETES MELLITUS WITHOUT COMPLICATIONS Status: Chronic Qualifiers: Diabetes mellitus type: type 2 (5) HTN (hypertension) Code(s): I10 - ESSENTIAL (PRIMARY) HYPERTENSION Status: Chronic - Plan Plan: Patient is a 68M with PMHx of DM2, ESRD on HD, HTN, HLD that is admitted for NSTEMI #NSTEMI -Patient has multiple comorbidities for adverse cardiovascular outcomes -Physical exam unremarkable -Trops: 0.503>1.811>2.682>2.4 -EKG: At baseline w/o ST changes -HEART Score: 8 (High) -Nitrates, Aspirin, B-Anh and Statin -Heparin Protocol initiated w/ Pharmacy to dose; 48hrs would be at 1624 08/08 -Dr. Rocha (Cardiology) consulted- appreciate recs. #HTN -Poorly controlled, likely chronic -Better control overnight in 130s-140s/60s, like due to dialysis yesterday -Clonidine, Coreg and Hydralazine, per Cardiology; Hydralazine IV prn #ESRD on Dialysis - Dr. Cornell consulted; sees pt in outpt setting. - Patient had dialysis 08/07, appreciate continued recs #DM2 -Poorly controlled -On home insulin dose -Hyperglycemia Protocol -Mild SSI -Accucheck ACHS #HLD -Continue home medication regimen Code Status: Full Code Diet: NPO After Midnight Activity: Ad Rita DVT PPx: SCDs and Heparin Dispo: Patient currently stable on Telemetry Floor, s/p dialysis 08/07. Multiple CV risk factors and recent elevated BP w/ CP is concerning. Cardiology consulted on 08/06 w/ Nephrology 08/07. Appreciate recs. Addendum - Attending - Attending Attestation Date/Time: 08/08/19 8006 I personally evaluated the patient and discussed the management with Dr. Arellano I agree with the History, Examination, Assessment and Plan documented above with any addition or exceptions noted below - Patinet denies any chest pain or SOB. Afebrile BP 184/85 P60. A/P: 1) NSTEMI - appreciate cardiology input. Echo pending. Continue coreg. D/c heparin drip this evening. 2) DM- stable. 3) ESRD- on HD; plans as per nephrology.
[2019-08-08] MEDS: Levothyroxine Sodium 88 MCG TAB PO SCH (05:56)
[2019-08-08] MEDS: HumaLOG 300 UNITS/3 ML VIAL SC SCH ×3 (08:36→17:00)
[2019-08-08] MEDS: Insulin Glargine 45 UNITS in Pre-Filled Syringe 1 EACH SC SCH ×3 (08:37→21:50)
[2019-08-08] MEDS: Amlodipine 10 MG TAB PO SCH (09:21)
[2019-08-08] MEDS: Aspirin 325 mg Enteric Coated Tablet PO SCH (09:22)
[2019-08-08] MEDS: hydrALAZINE 25 MG TAB PO SCH ×3 (09:23→21:53)
[2019-08-08] MEDS: Carvedilol 6.25 MG TAB PO SCH ×2 (10:08→21:53)
--- NOTE | 2019-08-08 10:22 | PRG ---
DATE OF SERVICE: 08/08/2019 SUBJECTIVE: Mr. Richmond is a 68-year-old male with ESRD and was initially admitted for chest pain. His chest pain is much improved. He is to be evaluated by Cardiology. We are following up this patient for his maintenance hemodialysis. I have scheduled him for his regular dialysis today. No new complaints. No shortness of breath. OBJECTIVE: VITAL SIGNS: Blood pressure 180/89, heart rate 60, respiratory rate 16, temperature 97.7, and pulse ox 96% on room air. GENERAL: Awake, alert, and comfortable, not in distress. SKIN: Adequate turgor. HEENT: Pinkish conjunctivae. Anicteric sclerae. NECK: No neck mass. No carotid bruits. No JVD. CHEST: No deformities. LUNGS: Clear breath sounds. No wheezing. No crackles. HEART: Normal sinus rhythm. No murmurs, gallops, or rubs. ABDOMEN: Globular, soft, and nontender. No masses. EXTREMITIES: No edema. No deformities. MEDICATIONS: Medications of August 08, 2019, reviewed. LABORATORY DATA: Laboratories of August 07, 2019; white count 10.9 and hemoglobin 11.7. August 08, 2019; glucose 126. August 07, 2019; sodium 137, potassium 3.8, chloride 100, carbon dioxide 19, BUN 76, and creatinine 10.94. AST 15 and ALT 9. Troponin I 2.41. ASSESSMENT/PLAN: 1. Chest pain/elevated troponin I-Cardiology to evaluate the patient. 2. End-stage renal disease, stable. We will continue current hemodialysis regimen, Saturday, , and Saturday. Again, fluid removal only as tolerated by the patient. 3. Overall agree with current management. Job ID: [id number]
[2019-08-08] MEDS: Heparin 10,000 UNITS/ 10 ML VIAL SLOW IVP SCH (14:50)
[2019-08-08] MEDS ORDERED: Rosuvastatin 20 MG TAB PO SCH (21:00)
--- NOTE | 2019-08-08 21:24 | CON ---
DATE OF CONSULTATION: HISTORY OF PRESENT ILLNESS: Mr. Richmond is a gentleman with previous coronary artery bypass grafting with severe diffuse distal atherosclerosis, who had a non-ST elevation infarction prompting this admission. The patient does have severe diffuse coronary artery disease. He did undergo successful surgery in 2015 and that surgery is done by Dr. Nuñez. The surgery that was done at that time was noted to have diffuse atherosclerosis at that time as mentioned. As mentioned, was seen by Dr. Nuñez in 2015. I do not see the actual operation note at that time, but he had multi-vessel bypass surgery. Has had chest pain before and after surgery as mentioned. The patient also has diabetes and end-stage renal disease, on hemodialysis as well as peripheral vascular disease. MEDICATIONS: He was on: 1. Levothyroxine. 2. Aspirin. 3. Clopidogrel. 4. Carvedilol. 5. Hydralazine. 6. Amlodipine. 7. I do not see that he is on a statin. ALLERGIES: HYDROCODONE AND PENICILLIN. REVIEW OF SYSTEMS: CONSTITUTIONAL: No significant weight gain or loss. VISION: No changes. HEARING: No changes. PULMONARY: No cough or wheezing. GASTROINTESTINAL: No nausea, vomiting, or diarrhea. SKIN: No rashes. NEUROLOGIC: No unilateral weakness or numbness. PSYCHIATRIC: No unusual depression or anxiety. HEMATOLOGIC: No unusual bruising. GENITOURINARY: No burning with urination. PHYSICAL EXAMINATION: GENERAL: This is a pleasant 68-year-old man, in no distress. VITAL SIGNS: Blood pressure 145/80, more recently at 180/85; pulse 60 and it is regular. HEENT: Eyes; sclerae nonicteric. Mouth; mucous membranes moist. NECK: Supple. No lymphadenopathy. LUNGS: Clear. No wheezing. CARDIAC: Normal S1, normal S2. There is no murmur, rub, or gallop. ABDOMEN: Soft and nontender. EXTREMITIES: No clubbing or cyanosis. There is no edema. SKIN: Warm and dry. PERTINENT LABORATORY DATA: Hemoglobin is 11.7. LDL cholesterol was 98. Peak troponin 2.682. The EKG shows a right bundle-branch block. The ejection fraction on echocardiogram was within normal limits at 50% to 55%. ASSESSMENT: 1. Status post bypass surgery, but he had diffuse distal atherosclerosis. The cardiac catheterization did reveal that the left main was normal. LAD 95% proximal diffuse distal disease. The circumflex 100% occluded, fills via [id number] collaterals. 2. Right coronary, [id number] plaque proximally 90% before large posterolateral branch, 90% posterior descending artery. PLAN: I would recommend continued medical therapy. 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 Job ID: [id number]
[2019-08-08] MEDS: Atorvastatin Calcium 40 MG TAB PO SCH (21:54)
[2019-08-09] MEDS: Levothyroxine Sodium 88 MCG TAB PO SCH (04:52)
--- NOTE | 2019-08-09 05:35 | PDOC.FM ---
- Subjective Subjective: Patient doing well this morning. Denies cp at this time. Discussed elevated BPs overnight, and patient reports that he checks his BP at home often and it is usually 120-130 systolic. No complaints, agreeable to current plan of care. - Objective Vital Signs & Weight: Vital Signs (12 hours) Temp Pulse Resp BP BP Pulse Ox 08/09/19 04:52 64 08/09/19 04:00 97.9 F 62 18 192/92 H 96 08/09/19 00:00 96.9 F L 64 18 176/85 H 95 08/08/19 21:53 59 L 184/85 H 08/08/19 20:00 98.2 F 59 L 16 181/85 H 96 Weight Weight 91.898 kg Result Diagrams: 08/07/19 03:48 08/07/19 03:48 Phys Exam - Physical Examination Constitutional: NAD HEENT: moist MMs, sclera anicteric Neck: supple, full ROM Respiratory: no wheezing, clear to auscultation bilateral Cardiovascular: RRR, no significant murmur Gastrointestinal: soft, non-tender Musculoskeletal: no edema, pulses present Neurological: normal sensation, moves all 4 limbs Lymphatic: no nodes Psychiatric: normal affect, A&O x 3 Skin: no rash, normal turgor Dx/Plan (1) NSTEMI (non-ST elevated myocardial infarction) Code(s): I21.4 - NON-ST ELEVATION (NSTEMI) MYOCARDIAL INFARCTION Status: Acute (2) ESRD (end stage renal disease) on dialysis Code(s): N18.6 - END STAGE RENAL DISEASE; Z99.2 - DEPENDENCE ON RENAL DIALYSIS Status: Chronic (3) Chest pain Code(s): R07.9 - CHEST PAIN, UNSPECIFIED Status: Acute (4) Diabetes Code(s): E11.9 - TYPE 2 DIABETES MELLITUS WITHOUT COMPLICATIONS Status: Chronic Qualifiers: Diabetes mellitus type: type 2 (5) HTN (hypertension) Code(s): I10 - ESSENTIAL (PRIMARY) HYPERTENSION Status: Chronic - Plan Plan: Patient is a 68M with PMHx of DM2, ESRD on HD, HTN, HLD that is admitted for NSTEMI #NSTEMI -Patient has multiple comorbidities for adverse cardiovascular outcomes -Physical exam unremarkable -Trops: 0.503>1.811>2.682>2.4 -EKG: At baseline w/o ST changes -HEART Score: 8 (High) -Nitrates, Aspirin, B-Anh and Statin -Heparin stopped yesterday after 48hrs, patient now back on home plavix and aspirin -Echo: 50-55% EF, inferior and lateral hypokinesis, mild increase in left ventricular size -Dr. Rocha/Emery (Cardiology) consulted; per report due to the patient's diffuse distal atherosclerosis a cardiac cath would likely not help and medical management is recommended; patient on asa, plavix, and statin at this time #HTN -Poorly controlled, likely chronic -Patient had elevated BPs overnight, possibly due to missing a dose of his home hydralazine and home coreg yesterday -reports his bp at home is usually 120-130s systolic -Clonidine, Coreg and Hydralazine, per Cardiology; Hydralazine IV prn #ESRD on Dialysis - Dr. Cornell consulted; sees pt in outpt setting. - Patient had dialysis 08/08, appreciate continued recs #DM2 -Poorly controlled -On home insulin dose -Hyperglycemia Protocol -Mild SSI -Accucheck ACHS #HLD -Continue home medication regimen Code Status: Full Code Diet: NPO After Midnight Activity: Ad Rita DVT PPx: SCDs and Heparin Dispo: Patient currently stable on Telemetry Floor, s/p dialysis 08/08. Cardiology consulted on 08/06, cath unlikely to help per Dr. Land; w/ Nephrology 08/07, continued dialysis regiment per Dr. Cornell. Likely d/c today with f/u outpatient Addendum - Attending - Attending Attestation Date/Time: 08/09/19 1105 I personally evaluated the patient and discussed the management with Dr. Arellano I agree with the History, Examination, Assessment and Plan documented above with any addition or exceptions noted below- Patient denies any complaints. Afebrile VSS. A/P: 1) NSTEMI- patient with diffuse distal disease; plan for medical management; continue current meds and d/c home today. 2) DM- stable
[2019-08-09] MEDS: HumaLOG 300 UNITS/3 ML VIAL SC SCH ×2 (08:47→12:07)
[2019-08-09] MEDS: Amlodipine 10 MG TAB PO SCH (08:48)
[2019-08-09] MEDS: hydrALAZINE 25 MG TAB PO SCH ×2 (08:50→13:14)
[2019-08-09] MEDS: Insulin Glargine 45 UNITS in Pre-Filled Syringe 1 EACH SC SCH (08:51)
[2019-08-09] MEDS: Aspirin 325 mg Enteric Coated Tablet PO SCH (08:52)
[2019-08-09] MEDS: Carvedilol 6.25 MG TAB PO SCH (08:52)
[2019-08-09] MEDS ORDERED: Clopidogrel Bisulfate 75 MG TAB PO SCH (09:00)
--- NOTE | 2019-08-09 10:08 | PRG ---
DATE OF SERVICE: 08/09/2019 SUBJECTIVE: Mr. Richmond is a 68-year-old male with ESRD-maintenance hemodialysis, admitted for chest pain. Cardiology has evaluated this patient. Per recommendation by Dr. Land, Medical management. The patient voices no other complaints. No chest pain or shortness of breath. OBJECTIVE: VITAL SIGNS: Blood pressure 188/88, heart rate 65, respiratory rate 17, temperature 98.1, and pulse ox 98%. GENERAL: Noted to be awake, alert, comfortable, not in distress. SKIN: Adequate turgor. HEENT: He has pinkish conjunctivae. Anicteric sclerae. NECK: No neck mass. No carotid bruits. No JVD. CHEST: No deformities. LUNGS: Clear breath sounds. HEART: Normal sinus rhythm. No murmurs, no gallops, no rubs. ABDOMEN: Globular, soft, nontender. No masses. EXTREMITIES: No edema. No deformities. MEDICATIONS: Medications of August 09, 2019, were reviewed. LABORATORY DATA: Laboratories of August 07, 2019; white count 10.9, hemoglobin 11.7. August 09, 2019; glucose 117. August 07, 2019; BUN 76, creatinine 10.94. ASSESSMENT AND PLAN: 1. End-stage renal disease, stable. Continue current hemodialysis regimen Saturday, , and Saturday. Tolerating said dialysis regimen. No indication for an emergent hemodialysis. 2. Chest pain/coronary artery disease-ejection fraction noted to be within normal. However, Cardiology has evaluated the patient. He is not a candidate for any invasive procedure. Continue Medical management. 3. Agree with current management. Job ID: [id number]
[2019-08-09] MEDS: cloNIDine 0.1 MG TAB PO PRN (12:29)
[2019-08-09 12:30] VITALS: TEMP 97.9
[2019-08-09 14:45] VITALS: BP 151/75
--- NOTE | 2019-08-09 21:28 | DIS ---
DATE OF ADMISSION: 08/06/2019 DATE OF DISCHARGE: 08/09/2019 ADMITTING RESIDENT: Giles Kendall MD ADMITTING ATTENDING: Matias Em MD DISCHARGE RESIDENT: Skyla Arellano MD DISCHARGE ATTENDING: Kimmie Thurman MD CONSULT: Cardiology (Emery Rocha), Nephrology (Kraig), walking program. PROCEDURES PERFORMED: None. IMAGING: Chest x-ray: No significant acute intrathoracic disease. Echo: EF 50% to 55%, mild increase in left ventricular size, inferior and lateral hypokinesis, structurally normal mitral valve without evidence of stenosis or regurgitation, structurally normal aortic valve without evidence of stenosis or regurgitation, structurally normal tricuspid valve with no evidence of regurgitation. PRIMARY DIAGNOSIS: Non ST-elevation myocardial infarction. SECONDARY DIAGNOSES: Coronary artery bypass grafting (2015), hypertension, hyperlipidemia, type 2 diabetes. DISCHARGE MEDICATIONS: 1. 10 mg amlodipine p.o. daily. 2. 325 mg aspirin p.o. daily. 3. 40 mg atorvastatin p.o. at bedtime. 4. 12.5 mg carvedilol p.o. b.i.d. 5. 75 mg Plavix p.o. daily. 6. 5 units NovoLog subcu t.i.d. with meals. 7. 45 units of Levemir subcu b.i.d. 8. 88 mcg level levothyroxine p.o. daily. 9. 10 mg glipizide p.o. b.i.d. with meals. 10. 50 mg hydralazine p.o. t.i.d. DISCONTINUED MEDICATIONS: 1. Lovenox. 2. Nitroglycerin. 3. Robitussin. 4. Zofran. 5. Heparin. 6. Clonidine 0.1 mg p.o. q.4 hours p.r.n. 7. Insulin sliding scale. HISTORY OF PRESENT ILLNESS/HOSPITAL COURSE: The patient presented with worsening chest pain over the course of 2-3 days prior to admission. His EKG did not show any ST-segment changes, however, he had an initial troponin of 0.5, which continued to climb. He was admitted for ACS rule out and it was determined that he had an NSTEMI. He was risk stratified and he was found to have a total cholesterol 140 , LDL 90, and HDL 29. His home aspirin and hypertension medications were continued, and atorvastatin was added to his medication regimen. He was followed by Dr. Cornell from Nephrology while hospitalized and continued his home dialysis regimen. He was also evaluated by Cardiology. An echo was done, see report above. Dr. Land stated that due to the patient's diffuse distal atherosclerosis, he did not recommend a cardiac cath at this time as this would likely not benefit the patient. Upon discharge, the patient has not had chest pain for several days. He was in stable condition and agreeable to current plan of care. DISPOSITION: Stable. DISCHARGE INSTRUCTIONS: 1. Location: Home. 2. Diet: Heart healthy, carb conscious. 3. Activity: As tolerated. 4. Followup: Follow up with PCP within 10 days, continue home dialysis as previously done. Job ID: [id number] MTDD
--- NOTE | 2019-08-10 11:35 | EKG ---
Test Reason : Blood Pressure : / mmHG Vent. Rate : 071 BPM Atrial Rate : 071 BPM P-R Int : 162 ms QRS Dur : 166 ms QT Int : 482 ms P-R-T Axes : 055 -78 -28 degrees QTc Int : 523 ms Normal sinus rhythm Premature ventricular complexes Right bundle branch block . Left anterior fascicular block Bifascicular block Minimal voltage criteria for LVH, may be normal variant Abnormal ECG When compared with ECG of 06-AUG-2019 12:55, (Unconfirmed) Current undetermined rhythm precludes rhythm comparison, needs review T wave inversion now evident in Inferior leads Nonspecific T wave abnormality now evident in Lateral leads Confirmed by Ta BORGES ([id number]) on 08/10/2019 11:35:18 AM Referred By: SHELBY ADAME Confirmed By:Ta BORGES
== END 2019-08-09 14:07 | disposition home or self-care (01) | DRG 280 ==
LOC: ERS 12:48 → 2NO 17:15
PROVIDERS: ADMIT Family Medicine; ATTEND Family Medicine
PROC: 5A1D70Z Performance of Urinary Filtration, Intermittent, Less than 6 Hours Per Day (ICD-10-PCS; principal; 2019-08-06)
DX: I21.4 Non-ST elevation (NSTEMI) myocardial infarction (principal); N18.6 End stage renal disease; I25.10 Atherosclerotic heart disease of native coronary artery without angina pectoris; E11.22 Type 2 diabetes mellitus with diabetic chronic kidney disease; E11.65 Type 2 diabetes mellitus with hyperglycemia; I10 Essential (primary) hypertension; Z79.4 Long term (current) use of insulin; Z79.01 Long term (current) use of anticoagulants; Z79.02 Long term (current) use of antithrombotics/antiplatelets; Z79.899 Other long term (current) drug therapy; Z95.1 Presence of aortocoronary bypass graft; Z88.0 Allergy status to penicillin; Z88.5 Allergy status to narcotic agent; Z79.82 Long term (current) use of aspirin; Z99.2 Dependence on renal dialysis
CPT/HCPCS: 36415; 36416; 71045; 80053; 80061; 82550; 82553; 84484; 85025; 85730; 93005; 93010; 93306; 93798; 96372; J0360; J1644; J1650; J1815